=== PATIENT | female | born 2000 | race Caucasian/White ===

== ENCOUNTER 2021-07-14 06:05 | Day surgery (SDC) | payer OTHER ==
[~2021-07-14] VITALS: Ht 157.5 cm; Wt 54.4 kg
[~2021-07-14 06:05] MED LIST: DOXYCYCLINE 200 MG in DEXTROSE 5% 250 ML IV ONE
[2021-07-14] MEDS ORDERED: DOXYCYCLINE 200 MG in DEXTROSE 5% 250 ML IV SCH (07:00)
[2021-07-14 07:32] LABS: BASOPHILS % (AUTO) 0.7 % (0.0-2.0); EOSINOPHILS # (AUTO) 0.1 K/uL (0-0.4); EOSINOPHILS % (AUTO) 1.2 % (0.0-4.0); HEMATOCRIT 35.2 % (36-48); HEMOGLOBIN 11.7 g/dL (12.0-16.0); LYMPHOCYTES # (AUTO) 2.4 K/uL (2.5-16.5); LYMPHOCYTES % (AUTO) 33.9 % (20.5-51.1); MEAN CORPUSCULAR HEMOGLOBIN 27 pg (27-31); MEAN CORPUSCULAR HGB CONC 33 g/dL (33-37); MEAN CORPUSCULAR VOLUME 82.3 fL (80-94); MONOCYTES # (AUTO) 0.6 K/uL (0.8-1.0); NEUTROPHILS # (AUTO) 3.9 K/uL (1.8-7.7); NEUTROPHILS % (AUTO) 55.2 % (42.2-75.2); PLATELET COUNT (AUTO) 257 K/uL (140-450); RED BLOOD CELL COUNT(AUTO) 4.28 MIL/uL (4.20-5.40); RED CELL DISTRIBUTION WIDTH 12.7 % (11.6-13.7); WHITE BLOOD COUNT (AUTO) 7.1 K/uL (4.8-10.8)
[2021-07-14 07:50] LABS: ALBUMIN 3.8 g/dL (3.4-5.0); CARBON DIOXIDE 25.3 mmol/L (21-32); CREATININE 0.6 mg/dL (0.6-1.3); POTASSIUM 4.3 mmol/L (3.5-5.1); TOTAL BILIRUBIN 0.2 mg/dL (0.0-1.0)
[2021-07-14] MEDS ORDERED: HYDROmorphone 1 MG/ML AMP IVP PRN (07:55)
[2021-07-14] MEDS ORDERED: ONDANSETRON 4 MG/2 ML VIAL ONE (08:00)
[2021-07-14] MEDS ORDERED: DESFLURANE 240 ML BTL INH ONE (08:00)
[2021-07-14] MEDS ORDERED: PROPOFOL 200 MG/20 ML VIAL IV ONE ×2 (08:00→08:03)
[2021-07-14] MEDS ORDERED: DEXAMETHASONE 4 MG/ML VIAL ONE (08:00)
[2021-07-14] MEDS ORDERED: KETOROLAC 30 MG/ML VIAL ONE ×2 (08:00→08:03)
[2021-07-14] MEDS ORDERED: fentaNYL citrate 0.05 MG/ML VIAL ONE (08:02)
[2021-07-14] MEDS ORDERED: IBUPROFEN 800 MG TAB PO PRN (08:40)
[2021-07-14] MEDS ORDERED: HYDROmorphone PFS 2 MG/ML SYR ONE (08:46)
== END 2021-07-14 10:15 | disposition home or self-care (01) ==
LOC: MOR 06:05 → MMU 06:07 → MOR 10:15
PROVIDERS: ATTEND Obstetrics & Gynecology
DX: O02.1 Missed abortion (principal); Z3A.11 11 weeks gestation of pregnancy
CPT/HCPCS: 36415; 59820; 71045; 80053; 85025; 86886; 86900; 86901; 87426; 88305; J1100; J1170; J1885; J2405; J2704; J3010; J3490; J7060; J7120; Q0092